=== PATIENT | female | born 1980 | race Caucasian/White ===

== ENCOUNTER 2024-09-04 12:50 | Observation (INO) ==
[2024-09-04] MEDS: LABETALOL HCL IV 5 MG/ML 20ML IV STA (13:17)
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
[2024-09-04 13:28] LABS: Basophils # (auto) 0.08 K/uL (0.00-0.20); Basophils % (auto) 0.5 %; Eosinophils # (auto) 0.41 K/uL (0.00-0.50); Eosinophils % (auto) 2.7 %; Hematocrit (blood only) 42.1 % (37.0-47.0); Hemoglobin 14.6 g/dl (12.0-16.0); Immature Granulocytes # (auto) 0.08 K/uL (0.01-0.20); Immature Granulocytes % (auto) 0.5 %; Lymphocytes # (auto) 2.55 K/uL (1.20-3.40); Lymphocytes % (auto) 17.1 %; Mean Corpuscular Hemoglobin 28.7 pg (25.0-34.0); Mean Corpuscular Hgb Conc 34.7 g/dL (32.0-36.0); Mean Corpuscular Volume 82.7 fL (80.0-100.0); Mean Platelet Volume 11.2 fL (9.4-12.4); Monocytes # (auto) 1.01 K/uL (0.11-0.59); Monocytes % (auto) 6.8 %; Neutrophils # (auto) 10.78 K/uL (1.40-6.50); Neutrophils % (auto) 72.4 %; Platelet Count 307 K/uL (130-400); RDW Coefficient of Variation 13.3 % (11.5-14.5); RDW Standard Deviation 39.8 fL (36.4-46.3); Red Blood Count 5.09 M/uL (4.20-5.40); White Blood Count 14.91 K/ul (4.8-10.8)
[2024-09-04 13:49] LABS: Albumin Globulin Ratio 1.3 (0.9-2); Albumin Level 4.4 gm/dl (3.4-5.0); BUN Creatinine Ratio 16.5 (10-20); Bilirubin,Total 0.5 mg/dl (0.2-1.0); Calcium 9.7 mg/dl (8.6-10.3); Creatinine Clr Calc Pharmacy 92.3 ml/min; Globulin 3.5 gm/dl (2.5-4.0); Potassium 3.7 mmol/L (3.5-5.1); Total Protein 7.9 gm/dl (6.0-8.3)
--- NOTE | 2024-09-04 13:49 | XRay Report ---
XR chest 1V portable HISTORY: 44 years-old Female Chest pain, nonspecific COMPARISON: 01/30/2016 TECHNIQUE: AP view the chest FINDINGS: Cardiomediastinal and hilar silhouettes are unchanged. No pneumothorax, pleural effusion or airspace consolidation. Bones appear grossly intact. IMPRESSION: No acute process. ACT 112: Negative or not required by law. The above report was generated using voice recognition software. It may contain grammatical, syntax o r spelling errors. Electronically signed by: Genaro Ho M.D. 09/04/2024 1:48 PM
[2024-09-04 13:57] LABS: INR 0.9 (0.9-1.1); Prothrombin Time 10.1 Seconds (9.0-12.0)
[2024-09-04 14:00] LABS: D Dimer 730 ug/L FEU (0-500)
[2024-09-04] MEDS: OPTIRAY 320 125ml IV ONE (14:34)
--- NOTE | 2024-09-04 14:55 | CT Scan Report ---
CT ANGIOGRAM OF THE CHEST CLINICAL HISTORY: Chest pain. Hypertension. COMPARISON STUDY: Chest CT May 10, 2010. Chest radiograph performed earlier today. TECHNIQUE: Following the IV administration of 120 cc of Optiray 320, CT angiogram of the chest was pe rformed from the upper abdomen to the thoracic inlet utilizing the pulmonary embolus protocol. Images are reviewed in the axial, sagittal, and coronal planes. 3-D MIPS images are created and assessed. I V contrast was administered without complication. A dose lowering technique was utilized adhering to the principles of ALARA. CT DOSE: 734.57 mGy.cm FINDINGS: Thyroid: Unremarkable. Thoracic aorta: The caliber of the thoracic aorta is normal. No dissection is seen. Pulmonary vasculature: The caliber of the pulmonary trunk is normal. There are no filling defects marion ntified in main, lobar, or segmental pulmonary branches to suggest pulmonary embolus. Heart: The size of the heart is normal. There is no pericardial effusion. Lungs and pleural spaces: The lungs and pleural spaces are clear. Mediastinum: There is no mediastinal lymphadenopathy. Florence: There is no hilar adenopathy. Axillae: There is no axillary lymphadenopathy. Upper abdomen: Visualized portions of the upper abdomen are unremarkable. Skeletal structures: No lytic or blastic bony lesions are seen. IMPRESSION: 1. No pulmonary emboli identified. 2. No acute intrathoracic findings. ACT 112: Negative or not required by law. Electronically signed by: Arthur Cummins M.D. 09/04/2024 2:54 PM
--- NOTE | 2024-09-04 15:25 | History & Physical Report ---
Date of Service September 04, 2024 Assessment & Plan (1) Elevated troponin: (2) UTI (urinary tract infection): (3) Leukocytosis: (4) Chest pain: (5) Left upper quadrant pain: (6) Hypertension: Plan Patient is a 44-year-old female with past medical history of hypertension, GERD, kidney stones, and peripartum cardiomyopathy during . She presented to the ED due to intermittent sharp left-sided chest/upper abdomen pain that is just under her left lower rib cage and radiates to her back. Patient stated her blood pressure has been elevated since yesterday as high as 202/120 at home and that she took Lasix and lisinopril to try to help. In the ED she was found to have a troponin of 26, white count 14.19, and D-dimer 730. Chest CTA and CXR essentially negative. EKG showed NSR. Patient is being admitted for cardiac workup, nephrolithiasis remains in differential, UA and bladder/renal US ordered. #elevated troponin 26.0 -> 23.5 EKG showing NSR, no ischemic changes Intermittent chest/upper abdominal pain - EKG with chest pain as needed ASA 324 Mg p.o. and morphine 4 Mg IV given in ED K+ 3.7, will give 30 mEq p.o. KCl (goal 4.0) magnesium 1.7, will give 1 g IV magnesium trend BMP and magnesium Echocardiogram ordered trend trop q6h monitor on tele #UTI/leukocytosis white count 14.91 with neutrophil predominance, no left shift VSS, afebrile, nonseptic on admission UA ordered after admission, appears infectious with leukocyte esterase, >50 WBC, 4+ bacteria, no contaminate, 2+ blood history of E. coli resistant to ampicillin, intermittent to and resistance to Cipro and amp/sul will start on Rocephin Follow urine cultures trend cbc #Chest/abd pain cardiac versus abdominal in origin - suspect left pyelonephritis/nephrolithiasis with UTI above Elevated troponin and echocardiogram as above Spleen reviewed on chest CTA, no obvious infarct/tissue density change mild leukocytosis AP CT ordered, nephrolithiasis high on differential Tylenol prn, and Ativan 1mg Iv prn for muscle spasm #elevated D-dimer D-dimer 730 in ED ChestXR negative Chest CTA negative, personally reviewed and showed no obvious signs of splenic infarct/tissue density changes Patient denies any swelling/edema of extremities, no recent travel/sedentary lifestyle no history of previous VTE Patient is currently menstruating COVID/flu/RSV ordered - endorses recent cold symptoms #hypertension Reports BP as high as 202/120 at home 185/104 on arrival to ED, reduced to 131/80 after 10 Mg IV labetalol Continue home lisinopril and hydrochlorothiazide VTE ppx: SCDs, low risk Diet: regular Dispo: med/telemetry Admission and Anticipated Discharge Date Admission Date: 09/04/24 History of Present Illness Chief Complaint: chest pain Primary Care Provider: Sari Millan DO Patient is a 44-year-old female with past medical history of hypertension, GERD, kidney stones, and peripartum cardiomyopathy during . She presented to the ED due to intermittent sharp left-sided chest/upper abdomen pain that is just under her left lower rib cage and radiates to her back. Patient stated her blood pressure has been elevated since yesterday as high as 202/120 at home and that she took Lasix and lisinopril to try to help. In the ED she was found to have a troponin of 26, white count 14.19, and D-dimer 730. Chest CTA and CXR essentially negative. EKG showed NSR. Patient is being admitted for cardiac workup. Patient seen at bedside. She has intermittent pain that comes and goes during exam at rest. Pain was also reproducible with deep palpation just under the left rib cage. Patient stated that she had her left ovary removed June 23 and has had issues with her blood pressure being elevated since. She just takes hydrochlorothiazide and lisinopril as needed if her blood pressure is high. Yesterday afternoon her blood pressure was 202/120 in which she took magnesium, potassium, Lasix and lowered her BP to 130/80. This morning her BP resumed to be in the 200s at home so she came into the ED. Since noon today she has had the pain under her left rib that she describes as feeling like "a balloon moving up and down". She does have a history of kidney stones in which this feels different and higher in her abdomen. She also has a history of cardiomyopathy during , this pain also feels different. She does endorse feeling with some cold-like symptoms over the past week that she believes was allergies. She does have dizziness occasionally with the episodes. patient stated she is currently menstruating and does have a history of endometriosis, could consider endometrial tissue in left upper quadrant however low on differential. She otherwise denies headache, current dizziness/lightheadedness, shortness of breath, chest pain with deep inspiration, nausea, vomiting, diarrhea. 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 She stated her dad does have cardiac issues and had an WI at the age of 41. Allergies Allergy/AdvReac Type Severity Reaction Status Date / Time clindamycin Allergy Severe Rash Verified 06/29/24 14:10 doxycycline Allergy Severe "thought I Verified 06/29/24 14:10 " lactose AdvReac Mild Vomiting Verified 06/29/24 14:10 morphine AdvReac Mild severe Verified 06/29/24 14:10 vomiting Home Medications Medication Instructions Recorded Confirmed Type naproxen sodium 550 mg tablet 550 mg PO Q12H PRN pain #20 tabs 03/28/24 09/04/24 Rx (Anaprox DS) hydrochlorothiazide 12.5 mg tablet 12.5 mg PO UD 09/04/24 09/04/24 History lisinopril 10 mg tablet 10 mg PO UD 09/04/24 09/04/24 History pantoprazole 40 mg tablet,delayed 40 mg PO UD 09/04/24 09/04/24 History release Past Med/Surg History Problem List (Updated 09/04/24 @ 16:38 by Charmaine Art PA-C) UTI (urinary tract infection) Leukocytosis Left upper quadrant pain Chest pain Elevated troponin Post-operative state Pelvic pain Complex cyst of left ovary Encounter for annual routine gynecological examination Migraine headache GERD (gastroesophageal reflux disease) H. pylori infection Portal hypertension Portal hypertensive gastropathy Encounter for pre-operative examination Lower abdominal pain Dyspepsia Bloating Prediabetes Tobacco use Obesity Anxiety Peripartum cardiomyopathy, during occurred in 2019 --> follows with PCP currently. Kidney stones no surgery Hypertension Medical History (Updated 09/04/24 @ 16:38 by Charmaine Art PA-C) Endometrioma of left ovary Peripartum cardiomyopathy, during occurred in 2019 "thinks she had an echocardiogram done at [facility]"--> follows with PCP currently. Hx of gastroesophageal reflux (GERD) Depression hx, no current meds Abdominal bloating "has gotten better" Hx of gastritis H. pylori infection hx, tx w/abx. 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 Surgical History (Updated 06/29/24 @ 14:31 by Adele Prescott MD, FACOG) History of left salpingo-oophorectomy right salpingectomy Hx of esophagogastroduodenoscopy Hx of wisdom tooth extraction Status post tubal ligation 2018 History of dilatation and curettage Family History Father Kidney stones Hypertension Other No family history of adverse response to anesthesia Denies family history of Ovarian cancer Prostate cancer Crohn's disease Myocardial infarction Breast cancer Colorectal cancer Ulcerative colitis Social History (Updated 06/14/24 @ 14:36 by Adela Crowell CRNA) Smoking Status: Current every day smoker Tobacco Type: Cigarettes packs per day: 0.05; Cigarettes Per Day: 3-4; Second Hand Exposure: Yes (hx as child); Do You Dip or Chew Tobacco: No; Hx Alcohol Use: Yes Alcohol type: wine Hx Substance Use: No Preferred Language: Venezuelan Communication Ability: Effective Visual Impairment: No Limitations Hearing Ability: Normal Traverse Rod [employer]er Required: No Beliefs That Will Affect Care: None marital status: Single Current Living Situation: Family Current Living Situation Comment: 3 children current occupational status: employed current occupation: Self-employed; house cleaning Feels Safe at Home: Yes Dental Care, Regularly: Yes Physical Activity Frequency: 3-4 Times per Week Seatbelt Use: always Sunscreen Use: Yes Assistive Devices: None Review of Systems Review of Systems: See HPI Physical Exam Physical Exam: The patient is awake, alert and oriented 3, well developed and well nourished, normocephalic and atraumatic, in no acute distress. Non-toxic appearing. HEENT- EOMI, mucous membranes moist. Hearing grossly intact. Heart-normal S1 and S2. No murmurs, rubs or gallops. Lungs-clear bilaterally, no respiratory distress, no accessory muscle use. Abdomen-normal bowel sounds and soft. No ascites noted. Tender to deep palpation of left upper quadrant, just below left rib. Left CVA tenderness. Extremities- no clubbing, cyanosis, or edema. Rheumatologic-normal range of motion. Psychiatric-normal affect. Results & Data Results & Data Vital Signs (Past 12 Hours) Vital Signs Temp Pulse Pulse Resp BP BP Pulse Ox 09/04/24 14:25 131/81 09/04/24 14:05 78 14 133/82 99 09/04/24 14:00 79 14 131/82 99 09/04/24 13:51 78 16 149/83 H 98 09/04/24 13:45 79 24 98 09/04/24 13:40 130/86 09/04/24 13:36 79 18 132/79 97 09/04/24 13:35 81 119/81 09/04/24 13:25 132/82 09/04/24 13:22 90 09/04/24 13:17 87 163/109 H 09/04/24 13:15 90 18 97 09/04/24 13:15 81 18 163/109 H 97 09/04/24 13:15 97 09/04/24 13:12 90 16 163/109 H 09/04/24 12:57 36.6 C 99 H 18 185/104 H 97 O2 Del Method 09/04/24 14:25 09/04/24 14:05 Room Air 09/04/24 14:00 Room Air 09/04/24 13:51 Room Air 09/04/24 13:45 Room Air 09/04/24 13:40 09/04/24 13:36 Room Air 09/04/24 13:35 09/04/24 13:25 09/04/24 13:22 09/04/24 13:17 09/04/24 13:15 Room Air 09/04/24 13:15 Room Air 09/04/24 13:15 Room Air 09/04/24 13:12 09/04/24 12:57 Room Air Laboratory Results Reviewed CBC, PT/INR, D-dimer, CMP, troponin Ordered UA and magnesium Diagnostic Findings reviewed chest CTA and CXR Medications Administered EDlabetalol 10 Mg IV, ASA 324 Mg p.o., morphine 4 Mg IV, Zofran 4 Mg IV ECG Additional Comments: NSR Code Status & VTE Plan Code Status full VTE Prophylaxis Plan VTE Prophylaxis will be ordered: Yes Supervising Physician Co-Signing Physician Notes Patient seen and examined, chart reviewed, case discussed with Charmaine Art PA-C and I agree with the assessment and plan as above except as otherwise noted Labs and images reviewed Seen at the bedside. Patient was initially seen for concerns of chest pain and hypertension. D-dimer was positive, CTA PE protocol did not show any abnormalities. She denies dysuria but notes she is having some left upper quadrant discomfort like a bubble or gas which radiates into her back, she also has some left back/flank tenderness and was very tender on left CVA percussion. UA and renal bladder ultrasound added. Abdomen is otherwise soft and without rebound/guarding. In between some spasms of pain she denies abdominal pain and has no discomfort on deep palpation. CT deferred. He describes an aching bubblelike pain under her ribs of the left upper quadrant, no history of prior blood clots. D-dimer was positive although with no PEs. Troponin was minimally elevated and downtrended on recheck. Splenic artery and spleen are partially visualized on CTA, no obvious parenchymal change or occlusion on visualized segments. UA subsequently with 4+ bacteria, white blood cells, leukocyte esterase. 2+ blood. She does have a history of kidney stones. On reassessment is having worsening pain in her flank radiating up to her left shoulder. Manage with increased muscle tone and tender to CVA and shoulder blade palpation which reproduces her pain. Endorses some left-sided abdominal/flank pain. Due to worsening pain, history of kidney stones, and? Pyelo-CTA/P Noncon ordered. Patient started on Rocephin 2 g daily, she reports she has some medication allergies but does not have any known cephalosporin allergy. Agree with above PG Care Time/CCT Total # of Minutes Spent Total Time Spent with Patient: Total time spent is greater than 50% in coordination of care (as documented) at patient's floor/unit and/or counseling patient: Coding Level of Care Code 70245 INT INP/OBS CARE 3/75MIN Diagnoses Elevated troponin R79.89 UTI (urinary tract infection) N39.0 Leukocytosis D72.829 Chest pain R07.9 Left upper quadrant pain R10.12 Hypertension I10
[2024-09-04 15:45] LABS: Magnesium 1.7 mg/dl (1.7-2.4)
[2024-09-04] MEDS: MoRPHine SULFATE 4 MG/ML 1 ML CARP\\VIAL IV STA (15:50)
[2024-09-04] MEDS: ONDANSETRON INJ 2 MG/ML 2 ML VIAL IV STA (15:50)
[2024-09-04] MEDS: ASPIRIN CHEW 324 MG PO STA (15:50)
[2024-09-04 15:52] LABS: Troponin I High Sensitivity 23.5 pg/ml (0-14)
[2024-09-04] MEDS: ACETAMINOPHEN 1,000 MG/100 ML VIAL IV STA (15:55)
[2024-09-04] MEDS: POTASSIUM CHLORIDE 10 MEQ TABCR PO STA (16:13)
[2024-09-04] MEDS: MAGNESIUM SULFATE / D5W 1 GM/100 ML BAG IV ONE (16:14)
[2024-09-04 16:24] LABS: Appearance Urine Clear (Clear); Bacteria Urine Automated 4+ (None Seen); Bilirubin Urine Negative (Negative); Blood Urine 2+ (Negative); Cast Urine Automated 0-2 /lpf (0-2); Color Urine Yellow; Epithelial Cell Urine Auto 0-2 /hpf (0-2); Glucose Urine UA Negative (Negative); Ketones Urine Negative (Negative); Leukocyte Esterase Urine 3+ (Negative); Nitrite Urine Negative (Negative); Protein Urine Negative (Negative); RBC Urine Automated 0-2 /hpf (0-2); Specific Gravity Urine 1.021 (1.000-1.030); Urobilinogen Urine Negative (Negative); WBC Urine Automated >50 /hpf (0-5); pH Urine 6.5 (4.5-7.5)
[2024-09-04] MEDS: LORazepam 2 MG/1 ML VIAL IV STA (16:30)
[2024-09-04 18:01] LABS: Influenza A virus by PCR Negative (Neg); Influenza B virus by PCR Negative (Neg); RSV by PCR Negative (Neg); SARS CoV2 RNA(COVID-19) Ceph NEGATIVE (Negative)
--- NOTE | 2024-09-04 18:33 | CT Scan Report ---
Clinical History: Abdominal pain Technique: Axial computed tomography images were obtained of the abdomen and pelvis without intravenous contrast. Findings: The liver is enlarged measuring 20 cm craniocaudal. There is no sign of cirrhosis or significant fatty infiltration. No definite liver mass lesion is seen on this noncontrast study. The gallbladder appears unremarkable. No bile duct dilatation is noted. The spleen is mildly enlarged measuring 14.1 cm. No focal splenic lesion is evident. The pancreas appears normal with no sign of acute or chronic pancreatitis and no mass lesion noted. The pancreatic duct is of normal caliber. The adrenal glands appear unremarkable. There is excreted contrast within the renal collecting systems bilaterally. There is no hydronephrosis or perinephric stranding. There is an approximately 1 cm area of apparent heterogeneous enhancement in the inferior left kidney, image 172 of the axial series The aorta is of normal caliber. No abdominal adenopathy is seen. There is a small umbilical hernia containing only fat The stomach appears normal. There is no sign of small bowel obstruction. The colon appears unremarkable. The appendix appears normal also. No free intraperitoneal fluid or air is identified. No distal ureteral or bladder calculi are seen. No obvious bladder mass lesion is evident. The iliac arteries are of normal caliber. No pelvic adenopathy is noted. There is a 3.5 cm right ovarian cyst The lungs bases appear clear. No fracture is identified. No focal osseous lesion is seen Impression: 1. Umbilical hernia containing only fat 2. Hepatosplenomegaly 3. Focal area of abnormal enhancement within the inferior left kidney. While this could be due to retained contrast in an area of inflammation, renal neoplasm is also possible. A follow-up renal protocol abdominal CT or MRI could be considered 4. 3.5 cm right ovarian cyst, likely a benign functional cyst. A pelvic ultrasound could be considered for further evaluation ACT 112: Positive. There are findings on this exam that require communication between the performing entity and the patient following Patient Test Result Information Act ([place] ACT 112) guidelines. Electronically signed by Hector Jones 09-04-2024 6:31 PM
[2024-09-04] MEDS ORDERED: DOCUSATE SODIUM 100 MG CAP PO PRN (18:39)
[2024-09-04] MEDS ORDERED: MELATONIN 3 MG TAB PO PRN (18:39)
[2024-09-04] MEDS: PANTOprazole 40 MG TAB PO SCH (19:59)
[2024-09-04] MEDS: cefTRIAXone SODIUM 2,000 MG/50 ML BAG IV SCH (19:59)
[2024-09-04] MEDS ORDERED: LORazepam 2 MG/1 ML VIAL IV PRN (22:00)
[2024-09-05 04:04] VITALS: O2SAT 98
[2024-09-05] MEDS: ONDANSETRON INJ 2 MG/ML 2 ML VIAL IV PRN (04:44)
[2024-09-05 06:46] LABS: Basophils # (auto) 0.05 K/uL (0.00-0.20); Basophils % (auto) 0.5 %; Eosinophils # (auto) 0.35 K/uL (0.00-0.50); Eosinophils % (auto) 3.6 %; Hematocrit (blood only) 35.9 % (37.0-47.0); Hemoglobin 12.2 g/dl (12.0-16.0); Immature Granulocytes # (auto) 0.03 K/uL (0.01-0.20); Immature Granulocytes % (auto) 0.3 %; Lymphocytes # (auto) 1.85 K/uL (1.20-3.40); Lymphocytes % (auto) 19.1 %; Mean Corpuscular Hemoglobin 28.7 pg (25.0-34.0); Mean Corpuscular Volume 84.5 fL (80.0-100.0); Monocytes # (auto) 0.98 K/uL (0.11-0.59); Monocytes % (auto) 10.1 %; Neutrophils # (auto) 6.43 K/uL (1.40-6.50); Neutrophils % (auto) 66.4 %; Platelet Count 240 K/uL (130-400); RDW Coefficient of Variation 13.5 % (11.5-14.5); Red Blood Count 4.25 M/uL (4.20-5.40); White Blood Count 9.69 K/ul (4.8-10.8)
[2024-09-05 07:10] LABS: Troponin I High Sensitivity 5.7 pg/ml (0-14)
[2024-09-05 07:15] LABS: BUN Creatinine Ratio 14.3 (10-20); Calcium 8.5 mg/dl (8.6-10.3); Creatinine Clr Calc Pharmacy 93.8 ml/min; Potassium 4.3 mmol/L (3.5-5.1)
[2024-09-05] MEDS: lisinopril 10 MG TAB PO SCH (08:09)
[2024-09-05] MEDS: hydroCHLOROthiazide 25 MG TAB PO SCH (08:09)
--- NOTE | 2024-09-05 09:42 | XCELERA ---
[id number]
[2024-09-05] MEDS: ACETAMINOPHEN 325 MG TAB PO PRN (10:38)
[2024-09-05 12:05] VITALS: BP 125/82; RESP 16; TEMP 97.7
--- NOTE | 2024-09-05 12:19 | Discharge Summary ---
Discharge Summary Date of Service September 05, 2024 Principal Dx & Hospital Course #1 = Principal Diagnosis (1) Elevated troponin: Mild. No acute EKG changes. No evidence of acute coronary syndrome (2) UTI (urinary tract infection): E. coli isolated. Treated while hospitalized with Rocephin. She will be discharged on nitrofurantoin for 3 more days (3) Leukocytosis: Present on admission. Due to UTI (4) Chest pain: Noncardiac. Mild troponin elevation without acute EKG changes. Now resolved (5) Left upper quadrant pain: Present on admission. Now resolved (6) Hypertension: Uncontrolled hypertension while in the ED requiring supplemental medications. Blood pressure is now normalized. She will follow-up with her PCP for further evaluation Plan Home today, September 05 Admission HPI Per Admitting Provider Patient is a 44-year-old female with past medical history of hypertension, GERD, kidney stones, and peripartum cardiomyopathy during . She presented to the ED due to intermittent sharp left-sided chest/upper abdomen pain that is just under her left lower rib cage and radiates to her back. Patient stated her blood pressure has been elevated since yesterday as high as 202/120 at home and that she took Lasix and lisinopril to try to help. In the ED she was found to have a troponin of 26, white count 14.19, and D-dimer 730. Chest CTA and CXR essentially negative. EKG showed NSR. Patient is being admitted for cardiac workup. Patient seen at bedside. She has intermittent pain that comes and goes during exam at rest. Pain was also reproducible with deep palpation just under the left rib cage. Patient stated that she had her left ovary removed June 23 and has had issues with her blood pressure being elevated since. She just takes hydrochlorothiazide and lisinopril as needed if her blood pressure is high. Yesterday afternoon her blood pressure was 202/120 in which she took magnesium, potassium, Lasix and lowered her BP to 130/80. This morning her BP resumed to be in the 200s at home so she came into the ED. Since noon today she has had the pain under her left rib that she describes as feeling like "a balloon moving up and down". She does have a history of kidney stones in which this feels different and higher in her abdomen. She also has a history of cardiomyopathy during , this pain also feels different. She does endorse feeling with some cold-like symptoms over the past week that she believes was allergies. She does have dizziness occasionally with the episodes. patient stated she is currently menstruating and does have a history of endometriosis, could consider endometrial tissue in left upper quadrant however low on differential. She otherwise denies headache, current dizziness/lightheadedness, shortness of breath, chest pain with deep inspiration, nausea, vomiting, diarrhea. 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 She stated her dad does have cardiac issues and had an MO at the age of 41. Discharge Exam General-alert and oriented x3, no fever, no chills HEENT-head atraumatic and normocephalic, pupils equal and reactive to light, extraocular muscles intact Neck-no lymphadenopathy or thyromegaly, trachea midline Chest-clear to auscultation. No rales, wheezing or rhonchi Cardiac-regular rate and rhythm, normal S1 and S2 Abdomen-normal bowel sounds, no hepatosplenomegaly Extremities-no cyanosis, clubbing, or edema Neuro-cranial nerves II through XII intact, motor and sensory function within normal limits, strength symmetrical, no focal deficits Psych-normal affect, normal mood Discharge Plan Discharge Items Patient Disposition: Home - Self-Care Reason For Visit: CHEST PAIN, ELEVATED TROPONIN Discharge Diagnosis: Urinary tract infection, noncardiac chest pain, elevated blood pressure Activity: Resume your previous activity Non-emergency contact: Primary Care Provider Call non-emergency contact if: your symptoms worsen Follow-up/Referrals: Sari Millan DO [Primary Care Provider] - Diet: Regular Addtl Attending Provider Instructions: Take Macrobid 100 mg twice a day for 3 more days. A prescription has been sent to your pharmacy. See primary care provider soon as possible for further evaluation of blood pressure and consideration for outpatient stress testing Pending Studies at Discharge: No Stand-Alone Forms: My [employer], Smoking Cessation Medications and DC Order Prescriptions: New nitrofurantoin monohyd/m-cryst [Macrobid] 100 mg capsule 100 mg PO BID 3 Days Qty: 6 0RF Rx Instructions: must administer with a meal/food Continued naproxen sodium [Anaprox DS] 550 mg tablet 550 mg PO Q12H PRN (Reason: pain) Qty: 20 1RF Rx Instructions: otc unable to verify pantoprazole 40 mg tablet,delayed release (DR/EC) 40 mg PO UD Rx Instructions: last filled 11/06/33 30 day lisinopril 10 mg tablet 10 mg PO UD Rx Instructions: last filled 12/04/23 30 day supply hydrochlorothiazide 12.5 mg tablet 12.5 mg PO UD Rx Instructions: last filled 11/06/33 30 day Discharge Orders: Discharge Order (Routine); Ordered 09/05/24 Ordered By: Gregorio Sher Admission Data Admit Date/Time: 09/04/24 16:04 Attending Provider: Gregorio Sher Admit Provider: Stan Lockwood Primary Care Provider: Sari Millan Other Providers: Stan Lockwood Hospital Stay Data Consultations 09/04/24 15:13 ED Decision to Admit Stat Diagnostic Imagining Performed 09/04/24 13:59 CT angio chest PE protocol Stat 09/04/24 16:41 CT Abdomen and Pelvis [CT abd pelvis wo con] Urgent Pending Results Patient Have Any Pending Studies at Discharge: No Discharge Instructions Given to Patient (Per Discharging Provider) Take Macrobid 100 mg twice a day for 3 more days. A prescription has been sent to your pharmacy. See primary care provider soon as possible for further evaluation of blood pressure and consideration for outpatient stress testing Total Time Total Time Spent Total Time Spent (In Minutes): 45 minutes Coding Level of Care Code 58452 INP/OBS DISCH >30 MIN Diagnoses Elevated troponin R79.89 UTI (urinary tract infection) N39.0 Leukocytosis D72.829 Chest pain R07.9 Left upper quadrant pain R10.12 Hypertension I10
[2024-09-05 12:31] VITALS: PULSE 76
== END 2024-09-05 12:53 | disposition home or self-care (01) ==
LOC: ED 12:50 → 2N 12:50 → SUATTDRO 16:04 → 2N 18:12